=== PATIENT | male | born 2000 | race African-American/Black ===

== ENCOUNTER 2023-03-10 16:43 | Emergency (ER) | payer OTHER ==
[~2023-03-10] VITALS: Ht 166.4 cm; Wt 79.8 kg
[2023-03-10 16:52] VITALS: BP 128/74; TEMP 99.2
== END 2023-03-10 17:42 | disposition home or self-care (01) ==
LOC: ED 16:43
DX: L60.0 Ingrowing nail (principal)
CPT/HCPCS: 99281